=== PATIENT | male | born 1990 | race Caucasian/White ===

== ENCOUNTER 2018-02-24 16:31 | Emergency (ER) | payer MEDICAID ==
[~2018-02-24] VITALS: Ht 165.1 cm; Wt 68.2 kg
[2018-02-24] MEDS ORDERED: CYCLOBENZAPRINE HCL 10 MG TABLET PO ONE (18:45)
[2018-02-24] MEDS ORDERED: KETOROLAC TROMETHAMINE 30 MG/ML VIAL IM ONE (18:45)
[2018-02-24 19:30] VITALS: BP 147/55
== END 2018-02-24 20:00 | disposition home or self-care (01) ==
LOC: EMS 16:33
DX: S39.012A Strain of muscle, fascia and tendon of lower back, initial encounter (principal); F17.210 Nicotine dependence, cigarettes, uncomplicated; X58.XXXA Exposure to other specified factors, initial encounter; Y93.89 Activity, other specified; Y92.89 Other specified places as the place of occurrence of the external cause; Y99.8 Other external cause status
CPT/HCPCS: 96372; 99283; 99406; J1885

== ENCOUNTER 2018-10-22 08:43 | Emergency (ER) | payer MEDICAID ==
[~2018-10-22] VITALS: Ht 162.6 cm; Wt 72.7 kg
[2018-10-22] MEDS ORDERED: LIDOCAINE 5% TRANSDERMAL PATCH TD ONE (09:45)
[2018-10-22] MEDS ORDERED: DIAZEPAM 5 MG TABLET PO ONE (09:45)
[2018-10-22] MEDS ORDERED: ACETAMINOPHEN 500 MG TABLET PO ONE (09:45)
[2018-10-22 11:15] VITALS: BP 132/81
[2018-10-22] MEDS ORDERED: IBUPROFEN 600 MG TABLET PO ONE (11:45)
== END 2018-10-22 11:43 | disposition home or self-care (01) ==
LOC: EMS 08:44
DX: S06.0X0A Concussion without loss of consciousness, initial encounter (principal); S33.5XXA Sprain of ligaments of lumbar spine, initial encounter; S13.4XXA Sprain of ligaments of cervical spine, initial encounter; M25.532 Pain in left wrist; M25.531 Pain in right wrist; V49.9XXA Car occupant (driver) (passenger) injured in unspecified traffic accident, initial encounter; Y93.89 Activity, other specified; Y92.488 Other paved roadways as the place of occurrence of the external cause; Y99.8 Other external cause status
CPT/HCPCS: 70450; 72125; 99406